=== PATIENT | male | born 1935 | race Caucasian/White ===

== ENCOUNTER 2018-02-18 10:00 | Outpatient (CLI) | payer MEDICARE, BC ==
[~2018-02-18] VITALS: Ht 205.7 cm; Wt 63.5 kg
[~2018-02-18 10:00] MED LIST: AMLO5TAB PO; ASPI-1009 PO; ATOR10TA87 PO; LOSA25TA21 PO
[2018-02-18 10:31] LABS: TOTAL HEMOGLOBIN 14.9 G/dl (14.0-18.0)
[2018-02-18] MEDS ORDERED: albuterol 2.5 MG/3 ML nebule NEB ONE (10:55)
== END 2018-02-18 23:59 | disposition home or self-care (01) ==
LOC: RT 10:00
PROVIDERS: ATTEND Internal Medicine Pulmonary Disease
DX: R94.2 Abnormal results of pulmonary function studies (principal); J44.9 Chronic obstructive pulmonary disease, unspecified; I10 Essential (primary) hypertension; Z87.891 Personal history of nicotine dependence; Z72.89 Other problems related to lifestyle
CPT/HCPCS: 85018; 94060; 94640; 94727; 94729; 94760

== ENCOUNTER 2018-09-16 05:48 | Day surgery (SDC) | payer MEDICARE, BC ==
[2018-09-16] VITALS (8 sets, daily range): BP systolic 134–151; BP diastolic 58–118
[~2018-09-16] VITALS: Ht 175.3 cm; Wt 67.7 kg
[~2018-09-16 05:48] MED LIST changes: +LOSA25TA12 PO; -LOSA25TA21 PO
[2018-09-16] MEDS ORDERED: DILT240C90 PO (06:10)
[2018-09-16] MEDS ORDERED: APIX5TAB3 PO (06:10)
[2018-09-16] MEDS ORDERED: LIDOcaine 1% 30ml preserv. free vial SQ ONE ×2 (08:00→08:30)
[2018-09-16 11:28] LABS: LYMPHOCYTES,BODY FLUID 92 %; MONOCYTES,BODY FLUID 6 %; NEUTROPHILS,BODY FLUID 2 %
[2018-09-16 11:37] LABS: BFAPPEAR CLOUDY
[2018-09-16 11:38] LABS: BF RBC COUNT 8600 /CU MM; BF WBC COUNT 210 /CU MM (0-1000); BFCOLOR OTHER; BFVOLUME 123 ML
== END 2018-09-16 10:20 | disposition home or self-care (01) ==
LOC: SSTAY O 05:48
PROVIDERS: ATTEND Internal Medicine Pulmonary Disease
DX: J90 Pleural effusion, not elsewhere classified (principal); J44.9 Chronic obstructive pulmonary disease, unspecified; I25.810 Atherosclerosis of coronary artery bypass graft(s) without angina pectoris; J18.9 Pneumonia, unspecified organism; I48.2 Chronic atrial fibrillation; I10 Essential (primary) hypertension; E78.5 Hyperlipidemia, unspecified; N40.0 Benign prostatic hyperplasia without lower urinary tract symptoms; M19.90 Unspecified osteoarthritis, unspecified site; F10.10 Alcohol abuse, uncomplicated; I71.4 Abdominal aortic aneurysm, without rupture; F15.21 Other stimulant dependence, in remission; Z95.1 Presence of aortocoronary bypass graft; Z92.3 Personal history of irradiation; Z95.5 Presence of coronary angioplasty implant and graft; Z87.891 Personal history of nicotine dependence; Z85.46 Personal history of malignant neoplasm of prostate; Z79.01 Long term (current) use of anticoagulants; Z79.899 Other long term (current) drug therapy; Z98.890 Other specified postprocedural states
CPT/HCPCS: 32555; 71045; 84157; 87070; 89051; J3490; 88108; 88173